=== PATIENT | female | born 1980 | race Caucasian/White ===

== ENCOUNTER 2018-04-10 14:37 | Emergency (ER) | payer OTHER ==
[2018-04-10] MEDS ORDERED: Fluorescein Sod TOPICAL 0.6* 0.6 MG TEST OPHTHALMIC ONE (15:12)
[2018-04-10] MEDS ORDERED: Tetracaine 0.5% OPTH.SOL 4 ML* 1 DROP BTL ONE (15:12)
[2018-04-10] MEDS ORDERED: Polymyx/Trimethoprim OPTH* 10 ML BTL RIGHT EYE ONE (15:34)
--- NOTE | 2018-04-10 15:34 | ED ---
Throat Pain/Nasal Congestion - HPI Summary HPI Summary: 37-year-old female presents with right eye pain since last night. She states her child causes scratch. States has not been able to keep eye open due to pain. She admits to photophobia. Denies any change in vision. No double vision. No other injury. Unsure when last tetanus is. Has no medical conditions. - History of Current Complaint Chief Complaint: EDEyeProblem Time Seen by Provider: 04/10/18 14:57 - Allergies/Home Medications Allergies/Adverse Reactions: Allergies Allergy/AdvReac Type Severity Reaction Status Date / Time No Known Allergies Allergy Verified 04/10/18 15:01 PMH/Surg Hx/FS Hx/Imm Hx Endocrine/Hematology History: Denies: Hx Anticoagulant Therapy Cardiovascular History: Denies: Hx Myocardial Infarction Infectious Disease History: No Infectious Disease History: Denies: Traveled Outside the [place] in Last 30 Days - Family History Known Family History: Negative: Diabetes - Social History Alcohol Use: Rare Substance Use Type: Reports: None Smoking Status (MU): Never Smoked Tobacco Review of Systems Negative: Fever Positive: Other - right eye pain. Negative: Diplopia Negative: Chest Pain Negative: Shortness Of Breath All Other Systems Reviewed And Are Negative: Yes Physical Exam Triage Information Reviewed: Yes Vital Signs On Initial Exam: Initial Vitals Temp Pulse Resp BP Pulse Ox 98.7 F 90 14 145/84 100 04/10/18 14:48 04/10/18 14:48 04/10/18 14:48 04/10/18 14:48 04/10/18 14:48 Vital Signs Reviewed: Yes Appearance: Positive: Well-Appearing Skin: Positive: Warm, Dry, Other - right eye corneal abrasion 2mm with flourscein exam Head/Face: Positive: Normal Head/Face Inspection Eyes: Positive: Normal, Conjunctiva Clear ENT: Positive: Pharynx normal Respiratory/Lung Sounds: Positive: Clear to Auscultation, Breath Sounds Present Cardiovascular: Positive: Normal, RRR Musculoskeletal: Positive: Normal Neurological: Positive: Normal Psychiatric: Positive: Normal Procedures - Eye Procedure Right Alcaine Drops Administered: Yes - 2mm uptake flourscein exam Diagnostics - Vital Signs Vital Signs Temp Pulse Resp BP Pulse Ox 04/10/18 14:48 98.7 F 90 14 145/84 100 - Laboratory Lab Statement: Any lab studies that have been ordered have been reviewed, and results considered in the medical decision making process. EENT Course/Dx - Course Course Of Treatment: 37-year-old female presents with right eye pain since last night. She states her child causes scratch. States has not been able to keep eye open due to pain. She admits to photophobia. Denies any change in vision. No double vision. No other injury. Unsure when last tetanus is. Has no medical conditions. Denies any foreign body. On fluorescein exam has 2 mm uptake at 12 o'[address] on [place]. Patient understands agrees with plan. - Differential Diagnoses Differential Diagnoses: Conjunctivitis, Corneal Abrasion, Foreign Body - Diagnoses Provider Diagnoses: Corneal abrasion Discharge - Sign-Out/Discharge Documenting (check all that apply): Patient Departure - Discharge Plan Condition: Good Disposition: HOME Patient Education Materials: Corneal Abrasion (ED) Referrals: Maame Oliva CNM [Primary Care Provider] - Rambo Grover MD [Medical Doctor] - Additional Instructions: Place 1 drop in eye 4 times a day for 5 days Use artificial tears or saline to rinse eye for symptomatic relief Take Tylenol or ibuprofen for pain Follow up with ophthalmology if no improvement in 5 days Return to ED if develop any new or worsening symptoms - Billing Disposition and Condition Condition: GOOD Disposition: Home
[2018-04-10 15:47] VITALS: BP 139/83
== END 2018-04-10 15:46 | disposition home or self-care (01) ==
LOC: ED 14:37
DX: S05.01XA Injury of conjunctiva and corneal abrasion without foreign body, right eye, initial encounter (principal); W50.4XXA Accidental scratch by another person, initial encounter; Y93.9 Activity, unspecified; Y92.9 Unspecified place or not applicable
CPT/HCPCS: 99282; A9270-GY